=== PATIENT | male | born 2005 | race African-American/Black ===

== ENCOUNTER → 2023-05-18 | Emergency (ER) | payer OTHER, SELFPAY ==
[~2023-05-18] MED LIST: CEFAZOLIN SODIUM 2 GM/VIAL ONE; FENTANYL CITR 100 MCG/2 ML ONE; LIDOCAINE 2% W/EPI 1:200,000 MPF 20 ML VIAL IM ONE; NA CHLORIDE 0.9% 1,000 ML ONE; NA CHLORIDE 0.9% 100 ML ONE; TDAP (DIPHTH,PERTUSS(ACELL),TET VAC) 0.5 ML VIAL IMVAC ONE
[2023-05-18 14:45] LABS: Absolute Lymphocytes (CBC) 1.8 K/uL (0.7-4.9); Hematocrit 39.5 % (39.6-49.0); Lymphocytes % 29.9 % (15.3-44.8); MCV 82.4 fL (80-100); MPV 8.4 fL (7.6-11.3); Platelets 210 thou/uL (152-406)
[2023-05-18 14:58] LABS: Potassium 3.5 mEq/L (3.5-5.1)
--- NOTE | 2023-05-18 15:05 | RAD REPORT ---
EXAM DESCRIPTION: CT - Facial Bones W/ Mpr - 05/18/2023 2:30 pm CLINICAL HISTORY: Facial injury with pain COMPARISON: None TECHNIQUE: Computed axial tomography of the face was obtained. Coronal and sagittal reconstruction w as performed. All CT scans are performed using dose optimization technique as appropriate and may include automated exposure control or mA/KV adjustment according to patient size. FINDINGS: Some images are degraded by patient motion artifact A 2 millimeter density anterior to the right globe. A 2 millimeter density within the skin anterior to the left maxillary sinus. 2 millimeter density abuts the anterior aspect of the skin adjacent to the inferior aspect of the lef t orbit A 3 millimeter and density superomedial aspect left orbit A fracture is not seen A TMJ dislocation is not noted. The globes are intact. Fluid within the sinuses is not seen. IMPRESSION: Negative for a facial fracture. Small densities as described above. One or more could represent foreign bodies and should be correlat ed clinically
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
--- NOTE | 2023-05-18 15:50 | RAD REPORT ---
EXAM DESCRIPTION: RAD - Knee Left 3 View - 05/18/2023 3:13 pm CLINICAL HISTORY: Left knee pain FINDINGS: No fracture or dislocation is seen.
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
[2023-05-18 21:04] VITALS: O2SAT 100
[2023-05-18 21:20] VITALS: BP 158/74
== END ==
LOC: ER 14:07
DX: S01.81XA Laceration without foreign body of other part of head, initial encounter (principal); S80.02XA Contusion of left knee, initial encounter; V49.9XXA Car occupant (driver) (passenger) injured in unspecified traffic accident, initial encounter; Z23 Encounter for immunization
CPT/HCPCS: 36415; 70450; 70486; 71260; 72125; 74177; 76377; 80048; 85025; J3010; J7030; Q9967